=== PATIENT | male | born 1985 | race Caucasian/White ===

== ENCOUNTER 2016-06-04 10:53 | Emergency (ER) | payer OTHER ==
--- NOTE | 2016-06-04 12:23 | DIAGNOSTIC IMAGING REPORT ---
PROCEDURE: XR CHEST 2 VIEW INDICATION: CHEST PAIN TECHNIQUE: PA and lateral views. COMPARISON: None. FINDINGS: Lungs are clear. Heart and mediastinum are normal. Thorax is normal. IMPRESSION: 1. Negative chest.
--- NOTE | 2016-06-04 12:58 | ED NURSING NOTES ---
Clinical Report - Nurses [facility] [address] [place] [address] 06/04/2016 10:54 Patient: TAMERA AN TRIAGE Triage time 10:56. Acuity: LEVEL 3. Chief Complaint: CHEST PAIN. 10:59 06/04/16. 10:59 06/04/16. No acute distress. ( Pt states his chest pain started 1 hr ago, pt started a new med for shoulder pain.). --10:59 Dominik Landeros R.N. 10:56 06/04/16. BP: 120/79. HR: 92. RR: 18. O2 saturation: 100% on room air. Temp: 97.9 F (oral). Pain level now: 10. --10:59 Dominik Landeros R.N. Weight: 72.5 kg stated. Height/Length: 67 inches Per Patient. BMI: 25.1. --10:57 Dominik Landeros R.N. Medications Meloxicam Oral, started 06/03/2016. --11:01 Dominik Landeros R.N. The following entry was struck by Dominik Landeros R.N., 11:01 (06/04/16) Reason - other. <<STRICKEN ENTRY-- Muscle Relaxant. --10:58 Dominik Landeros R.N. --END STRIKE>>. Medication/allergy information source: the patient. --10:59 Dominik Landeros R.N. Allergies None. --10:58 Dominik Landeros R.N. History Arrived by private vehicle. Historian: patient. Accompanied by family. 10:59 06/04/16. Onset. (1 hr ago). Treatment VETERINARIAN EPIDEMIOLOGIST: None. PAST MEDICAL HX: Immunizations: up-to-date. SOCIAL HX: Never smoker. Occasional alcohol use. No drug use. No infectious disease exposure. ABUSE ASSESSMENT: No report of abuse. FALL RISK ASSESSMENT: Fall risk assessment completed. No fall risk identified. NUTRITIONAL RISK ASSESSMENT: The nutritional risk assessment revealed no deficiencies. FUNCTIONAL ASSESSMENT: Functional assessment: no impairments noted. LEARNING NEEDS ASSESSMENT: The learning needs assessment revealed no barriers. SKIN INTEGRITY ASSESSMENT: Skin integrity risk assessment completed. No skin integrity risk identified. --10:59 Dominik Landeros R.N. PROBLEMS: Shoulder pain. Arthritis. --10:59 Dominik Landeros R.N. Syncope. Myofascial Strain. Torn rotator cuff. --11:04 Dominik Landeros R.N. ADDITIONAL SURGERIES: Vasectomy. --10:59 Dominik Landeros R.N. Assessment 10:06/04/16. --10:59 Dominik Landeros R.N. Interventions 10:06/04/16. 10:06/04/16. ID and allergy band on patient. To treatment room. --10:59 Dominik Landeros R.N. PHYSICAL ASSESSMENT 10:06/04/16. GENERAL / NEURO / PSYCH: Oriented X 4. Appears anxious. RESPIRATORY: Respirations not labored. CVS: Capillary refill less than 2 seconds. SKIN: Skin is warm and dry. --10:59 Dominik Landeros R.N. NURSING PROGRESS NOTES 11:06/04/16. monitoring engineer, pulse oximeter and NIBP monitor placed on patient; monitor alarms on. Patient gowned. Head of bed elevated. Two patient identifiers checked. Call light placed in reach. Side rails up x 2. Bed placed in lowest position. Brakes of bed on. Brakes of chair on. --11:00 Dominik Landeros R.N. 11:06/04/16. Patient ready for evaluation- chart flagged and notification provided. --11:00 Dominik Landeros R.N. 11:03 06/04/16. EKG time: (1106). EKG was ordered, performed by a tech and shown to the ED physician. --11:03 Dominik Landeros R.N. 11:04 06/04/16. Cardiac rhythm: normal sinus rhythm; (87). --11:04 Dominik Landeros R.N. 11:46 06/04/2016 Site #1 started via IV in the left antecubital space with an 20g angiocath, with aseptic technique and good blood return; one attempt. Blood drawn: rainbow set. Labeled in the presence of the patient and sent to the lab. Saline lock flushed with 10 mL saline. --11:46 Dominik Landeros R.N. 11:53 06/04/16. ( X-ray completed). --11:53 Dominik Landerso R.N. Cardiac rhythm: normal sinus rhythm. --11:57 Dominik Landeros R.N. 11:56 06/04/16. BP: 115/81. HR: 90. RR: 12. O2 saturation: 100% on room air. --11:57 Dominik Landeros R.N. DISPOSITION / DISCHARGE 13:17 06/04/2016 Site #1 removed upon discharge. Catheter intact. --13:17 Dominik Landeros R.N. 13:18 06/04/16. Cardiac rhythm: normal sinus rhythm. Condition at departure: improved. The goals identified in the patient's plan of care were met. No learning barriers present. Discharge instructions provided and reviewed with the patient. Reviewed warnings. Reviewed medication(s). Treatments reviewed. Patient verbalized understanding. Written instructions provided in [place]. The patient was discharged by the physician. He was discharged home and accompanied by family. He left the Emergency Department ambulatory and via private vehicle. Family member driving. FALL RISK ASSESSMENT: Fall risk assessment completed. No fall risk identified. --13:18 Dominik Landeros R.N. 13:16 06/04/16. BP: 114/74. HR: 80. RR: 12. O2 saturation: 99% on room air. Temp: 98.2 F (oral). --13:18 Dominik Landeros R.N. 13:18 06/04/16. Departure time: 13:18. --13:18 Dominik Landeros R.N. Locked/Released at 06/04/2016 13:26 by Dominik Landeros R.N.
--- NOTE | 2016-06-04 12:58 | ED ORDER SUMMARY ---
..... Patient: TAMERA AN OrderSheet [facility] VisitID: [id number] [place] [address] 31y, M Registration Date/Time: 06/04/2016 ORDER SHEET Weight: 72.5 kg (stated) Allergies: None GENERAL ORDERS: Machining Manager (Continuous) (11:06/04/2016 JBoardley R.N. per protocol) (11:02 JBoardley R.N.) Pulse oximeter (11:06/04/2016 JBoardley R.N. per protocol) (11:02 JBoardley R.N.) EKG - ER Stat (11:06/04/2016 JBoardley R.N. per protocol) (11:03 JBoardley R.N.) Chest 2V Urgent (11:36 06/04/2016 Wilman Pham) (11:46 JBoardley R.N.) Cardiac Panel Stat (11:06/04/2016 Wilman Pham) (11:46 JBoardley R.N.) BNP Urgent (11:36 06/04/2016 Wilman Pham) (11:46 JBoardley R.N.) D-Dimer Urgent (11:36 06/04/2016 Wilman Pham) (11:46 JBoardley R.N.) MEDICATION ORDERS: IV FLUIDS: IV Saline Lock (11:36 06/04/2016 Wilman Pham) (Ack 11:38 JBoardley R.N.) (11:46 JBoardley R.N.) ORDER SHEET NOTES: [Electronically signed by Dominik Landeros R.N. (13:26 06/04/2016)] [Electronically signed by Yony Nix Dr. (20:41 06/05/2016)] [Electronically locked/signed by Dominik Landeros R.N. (13:06/04/2016)]
--- NOTE | 2016-06-04 12:58 | ED CLINICAL REPORT ---
Clinical Report - Physicians/Mid Levels [facility] [address] [place] [address] 06/04/2016 10:54 Patient: TAMERA AN Time Seen: 11:00; initial patient contact. Arrived- By private vehicle. Historian- patient. HISTORY OF PRESENT ILLNESS Chief Complaint: CHEST PAIN. This started today and is still present. Onset during light activity. At its maximum, severity described as mild. When seen in the E.D., severity described as mild. Modifying factors. Not worsened by anything. Not relieved by anything. It is described as indigestion and burning and it is described as radiating to the upper back. The patient has had nausea and has experienced diaphoresis. No vomiting or difficulty breathing. Similar symptoms previously: None. Recent medical care: The patient was seen recently in the office. ( Started on Meloxicam yesterday). REVIEW OF SYSTEMS No fever, chills, cough, pedal edema or calf pain. He has had joint pain. All systems otherwise negative, except as recorded above. PAST HISTORY Shoulder pain. Arthritis. Syncope. Myofascial Strain. Torn rotator cuff. SURGERIES: Vasectomy. Medications: Meloxicam Oral, started 06/03/2016. Allergies: None. SOCIAL HISTORY Never smoker. Occasional alcohol use. No drug use. ADDITIONAL NOTES The nursing notes have been reviewed with agreement regarding the chief complaint, PMH and patient medications and allergies. PHYSICAL EXAM Vital Signs: 06/04/2016 10:56 BP: 120/79. HR: 92. RR: 18. O2 saturation: 100%. Temp: 97.9 F. Pain level now: 07/18. Have been reviewed as normal. Appearance: Alert. Oriented X3. No acute distress. Eyes: Eyes normal inspection. ENT: Pharynx normal. Neck: Normal inspection. CVS: Normal heart rate and rhythm. Heart sounds normal. Respiratory: No respiratory distress. Breath sounds normal. Abdomen: Soft. Mild tenderness in the epigastric area. No guarding, rebound tenderness or Sheridan's sign present. Bowel sounds normal. No mass. Back: Normal external inspection. No CVA tenderness. Skin: Normal skin color. No rash. Extremities: No calf tenderness. No lower extremity edema. Neuro: Oriented X 3. LABS, X-RAYS, AND EKG EKG: EKG time: (1106). No acute process. No acute ischemia. Normal EKG. Normal sinus rhythm. Rate: 82. Normal P waves. Normal EVIE. Normal QRS complex. Normal axis. Normal ST and T waves, QT and QTc. Prior EKG unavailable. The study has been interpreted contemporaneously by me. The study has been independently viewed by me. The EKG appears to be a good tracing. I agree with and confirm the computer reading of the EKG. Interpretation time: 1106. Chest X-ray: No acute disease. Normal lung markings present. Normal heart size. Mediastinum normal. Great vessels normal. Soft tissues normal. No infiltrate. No fracture. No bony lesion present. Views: PA and lateral. Technique: good. The X-rays were independently viewed by me and interpreted contemporaneously by me. Prior films were not available for comparison. Interpretation time: 12:00. Laboratory Tests: CBC w Diff: (SHU: 06/04/2016 11:45) ( MsgRcvd 06/04/2016 12:01) Final results Test Result Flag Units (Reference) WHITE BLOOD COUNT 7.0 K/uL (4.5-11.5) RED BLOOD COUNT 5.17 M/uL (4.50-5.90) HEMOGLOBIN 15.4 gm/dL (13.5-17.5) HEMATOCRIT 46.4 % (41.0-53.0) MEAN CELL VOLUME 90 fL (80-100) MEAN CORPUSCULAR HGB 30 pg (26-34) MEAN CORPUSCULAR HGB CONC 33 g/dL (31-37) RED CELL DISTRIBUTION WIDTH 13.3 % (11.6-14.8) PLATELET COUNT 176 K/uL (150-400) NEUTROPHIL % 87.6 H % (50-75) LYMPH % 6.1 L % (25-40) MONO % 4.6 % (3-14) EOSINOPHIL % 1.7 % (0-4) BASOPHIL % 0 % (0-2) [id number]: (SHU: 06/04/2016 11:45) ( MsgRcvd 06/04/2016 12:03) Final results Test Result Flag Units (Reference) D-DIMER QUANTITATIVE < 0.27 L ug/mLFEU (0.27-0.52) The primary value of this quantitative assay relates toits negative predictive value (i.e. exclusion) of pulmonaryembolism/deep vein thrombosis/DIC.Elevated levels of d-dimer may also occur with:, age, cancer, inflammation, liver disease,post-op, infection, hematoma, coronary disease, peripheralarteriopathy, bleeding disorders and thrombolytic treatment.Results should be correlated with other clinical andradiological data.Testing Methodology: Latex Immunoassay BNP: (SHU: 06/04/2016 11:45) ( [facility] 06/04/2016 12:28) Final results Test Result Flag Units (Reference) B-TYPE NATRIURETIC PEPTIDE 8.5 pg/ml (5-100) CHEM 13 PANEL: (SHU: 06/04/2016 11:45) ( AzgRcvd 06/04/2016 12:13) Final results Test Result Flag Units (Reference) GLUCOSE 86 mg/dL (70-110) BUN 19 H mg/dL (7-18) CREATININE 0.9 mg/dL (0.6-1.3) Estimated GFR >60 mL/min Estimated GFR- >60 mL/min Note: Persistent reduction over 3 months in eGFR<60 mL/min/1.73 m2 defines CKD. Patients with eGFR values>=60 mL/min/1.73 m2 may also have CKD if evidence ofpersistent proteinuria. Additional information may be foundat www.kidney.org. SODIUM 142 mmol/L (136-145) POTASSIUM 4.1 mmol/L (3.5-5.1) CHLORIDE 106 mmol/L (98-107) CARBON DIOXIDE 27 mmol/L (21-32) CALCIUM 8.7 mg/dL (8.5-10.1) TOTAL PROTEIN 7.3 g/dL (6.4-8.2) ALBUMIN 4.1 g/dL (3.3-5.0) BILIRUBIN, TOTAL 0.8 mg/dL (0.0-1.0) ALKALINE PHOSPHATASE 53 U/L (46-116) AST (SGOT) 18 U/L (15-37) ALT (SGPT) 26 U/L (12-78) MAGNESIUM 1.6 L mg/dL (1.8-2.4) CPK 85 U/L (24-260) TROPONIN I <0.05 L ng/mL (0.00-1.5) TROPONIN REFERENCE RANGE:<0.1 NEGATIVE0.1-1.5 INDETERMINANT>1.5 POSITIVE . PROGRESS AND PROCEDURES Disposition: Discharged home in good condition. Condition: good. CLINICAL IMPRESSION Acute gastritis. No alcoholic gastritis or hemorrhagic gastritis. INSTRUCTIONS Your Current Medications: STOP TAKING THE FOLLOWING MEDICATIONS: Meloxicam Oral : Started: 06/03/2016. Prescription Medications: Tramadol 50 mg: take 1 orally every 6 hours as needed for pain and stiffness. Do not take more than 8 tablets in a 24 hour period. Dispense twenty (20). No refills. Zantac 150 mg: take 1 orally every 12 hours. Dispense sixty (60). No refills. Substitution is permissible. Follow-up: Follow up with your doctor in about two days if not better. Call for an appointment. Screening today revealed the patient's blood pressure to be in the pre-hypertensive range. The patient should follow up with a primary care provider for blood pressure management. (Electronically signed by Yony Nix Dr. 06/05/2016 20:41)
--- NOTE | 2016-06-04 12:58 | ED NURSING NOTES ---
Clinical Report - Nurses [facility] [address] [place] [address] 06/04/2016 10:54 Patient: TAMERA AN TRIAGE Triage time 10:56. Acuity: LEVEL 3. Chief Complaint: CHEST PAIN. 10:59 06/04/16. 10:59 06/04/16. No acute distress. ( Pt states his chest pain started 1 hr ago, pt started a new med for shoulder pain.). --10:59 Dominik Landeros R.N. 10:56 06/04/16. BP: 120/79. HR: 92. RR: 18. O2 saturation: 100% on room air. Temp: 97.9 F (oral). Pain level now: 10. --10:59 Dominik Landeros R.N. Weight: 72.5 kg stated. Height/Length: 67 inches Per Patient. BMI: 25.1. --10:57 Dominik Landeros R.N. Medications Meloxicam Oral, started 06/03/2016. --11:01 Dominik Landeros R.N. The following entry was struck by Dominik Landeros R.N., 11:01 (06/04/16) Reason - other. <<STRICKEN ENTRY-- Muscle Relaxant. --10:58 Dominik Landeros R.N. --END STRIKE>>. Medication/allergy information source: the patient. --10:59 Dominik Landeros R.N. Allergies None. --10:58 Dominik Landeros R.N. History Arrived by private vehicle. Historian: patient. Accompanied by family. 10:59 06/04/16. Onset. (1 hr ago). Treatment PATIENT CASE MANAGER: None. PAST MEDICAL HX: Immunizations: up-to-date. SOCIAL HX: Never smoker. Occasional alcohol use. No drug use. No infectious disease exposure. ABUSE ASSESSMENT: No report of abuse. FALL RISK ASSESSMENT: Fall risk assessment completed. No fall risk identified. NUTRITIONAL RISK ASSESSMENT: The nutritional risk assessment revealed no deficiencies. FUNCTIONAL ASSESSMENT: Functional assessment: no impairments noted. LEARNING NEEDS ASSESSMENT: The learning needs assessment revealed no barriers. SKIN INTEGRITY ASSESSMENT: Skin integrity risk assessment completed. No skin integrity risk identified. --10:59 Dominik Landeros R.N. PROBLEMS: Shoulder pain. Arthritis. --10:59 Dominik Landeros R.N. Syncope. Myofascial Strain. Torn rotator cuff. --11:04 Dominik Landeros R.N. ADDITIONAL SURGERIES: Vasectomy. --10:59 Dominik Landeros R.N. Assessment 10:06/04/16. --10:59 Dominik Landeros R.N. Interventions 10:06/04/16. 10:06/04/16. ID and allergy band on patient. To treatment room. --10:59 Dominik Landeros R.N. PHYSICAL ASSESSMENT 10:06/04/16. GENERAL / NEURO / PSYCH: Oriented X 4. Appears anxious. RESPIRATORY: Respirations not labored. CVS: Capillary refill less than 2 seconds. SKIN: Skin is warm and dry. --10:59 Dominik Landeros R.N. NURSING PROGRESS NOTES 11:06/04/16. quality assurance monitor, pulse oximeter and NIBP monitor placed on patient; monitor alarms on. Patient gowned. Head of bed elevated. Two patient identifiers checked. Call light placed in reach. Side rails up x 2. Bed placed in lowest position. Brakes of bed on. Brakes of chair on. --11:00 Dominik Landeros R.N. 11:06/04/16. Patient ready for evaluation- chart flagged and notification provided. --11:00 Dominik Landeros R.N. 11:03 06/04/16. EKG time: (1106). EKG was ordered, performed by a tech and shown to the ED physician. --11:03 Dominik Landeros R.N. 11:04 06/04/16. Cardiac rhythm: normal sinus rhythm; (87). --11:04 Dominik Landeros R.N. 11:46 06/04/2016 Site #1 started via IV in the left antecubital space with an 20g angiocath, with aseptic technique and good blood return; one attempt. Blood drawn: rainbow set. Labeled in the presence of the patient and sent to the lab. Saline lock flushed with 10 mL saline. --11:46 Dominik Landeros R.N. 11:53 06/04/16. ( X-ray completed). --11:53 Dominik Landeros R.N. Cardiac rhythm: normal sinus rhythm. --11:57 Dominik Landeros R.N. 11:56 06/04/16. BP: 115/81. HR: 90. RR: 12. O2 saturation: 100% on room air. --11:57 Dominik Landeros R.N. DISPOSITION / DISCHARGE 13:17 06/04/2016 Site #1 removed upon discharge. Catheter intact. --13:17 Dominik Landeros R.N. 13:18 06/04/16. Cardiac rhythm: normal sinus rhythm. Condition at departure: improved. The goals identified in the patient's plan of care were met. No learning barriers present. Discharge instructions provided and reviewed with the patient. Reviewed warnings. Reviewed medication(s). Treatments reviewed. Patient verbalized understanding. Written instructions provided in [place]. The patient was discharged by the physician. He was discharged home and accompanied by family. He left the Emergency Department ambulatory and via private vehicle. Family member driving. FALL RISK ASSESSMENT: Fall risk assessment completed. No fall risk identified. --13:18 Dominik Landeros R.N. 13:16 06/04/16. BP: 114/74. HR: 80. RR: 12. O2 saturation: 99% on room air. Temp: 98.2 F (oral). --13:18 Dominik Landeros R.N. 13:18 06/04/16. Departure time: 13:18. --13:18 Dominik Landeros R.N. Locked/Released at 06/04/2016 13:26 by Dominik Landeros R.N.
--- NOTE | 2016-06-04 12:58 | ED ORDER SUMMARY ---
..... Patient: TAMERA AN OrderSheet [facility] VisitID: [id number] [place] [address] 31y, M Registration Date/Time: 06/04/2016 ORDER SHEET Weight: 72.5 kg (stated) Allergies: None GENERAL ORDERS: Manager Grocery (Continuous) (11:06/04/2016 JBoardley R.N. per protocol) (11:02 JBoardley R.N.) Pulse oximeter (11:06/04/2016 JBoardley R.N. per protocol) (11:02 JBoardley R.N.) EKG - ER Stat (11:06/04/2016 JBoardley R.N. per protocol) (11:03 JBoardley R.N.) Chest 2V Urgent (11:36 06/04/2016 Wilman Pham) (11:46 JBoardley R.N.) Cardiac Panel Stat (11:06/04/2016 Wilman Pham) (11:46 JBoardley R.N.) BNP Urgent (11:36 06/04/2016 Wilman Pham) (11:46 JBoardley R.N.) D-Dimer Urgent (11:36 06/04/2016 Wilman Pham) (11:46 JBoardley R.N.) MEDICATION ORDERS: IV FLUIDS: IV Saline Lock (11:36 06/04/2016 Wilman Pham) (Ack 11:38 JBoardley R.N.) (11:46 JBoardley R.N.) ORDER SHEET NOTES: [Electronically signed by Dominik Landeros R.N. (13:26 06/04/2016)] [Electronically signed by Yony Nix Dr. (20:41 06/05/2016)] [Electronically locked/signed by Dominik Landeros R.N. (13:06/04/2016)]
--- NOTE | 2016-06-04 12:58 | ED CLINICAL REPORT ---
Clinical Report - Physicians/Mid Levels [facility] [address] [place] [address] 06/04/2016 10:54 Patient: TAMERA AN Time Seen: 11:00; initial patient contact. Arrived- By private vehicle. Historian- patient. HISTORY OF PRESENT ILLNESS Chief Complaint: CHEST PAIN. This started today and is still present. Onset during light activity. At its maximum, severity described as mild. When seen in the E.D., severity described as mild. Modifying factors. Not worsened by anything. Not relieved by anything. It is described as indigestion and burning and it is described as radiating to the upper back. The patient has had nausea and has experienced diaphoresis. No vomiting or difficulty breathing. Similar symptoms previously: None. Recent medical care: The patient was seen recently in the office. ( Started on Meloxicam yesterday). REVIEW OF SYSTEMS No fever, chills, cough, pedal edema or calf pain. He has had joint pain. All systems otherwise negative, except as recorded above. PAST HISTORY Shoulder pain. Arthritis. Syncope. Myofascial Strain. Torn rotator cuff. SURGERIES: Vasectomy. Medications: Meloxicam Oral, started 06/03/2016. Allergies: None. SOCIAL HISTORY Never smoker. Occasional alcohol use. No drug use. ADDITIONAL NOTES The nursing notes have been reviewed with agreement regarding the chief complaint, PMH and patient medications and allergies. PHYSICAL EXAM Vital Signs: 06/04/2016 10:56 BP: 120/79. HR: 92. RR: 18. O2 saturation: 100%. Temp: 97.9 F. Pain level now: 07/18. Have been reviewed as normal. Appearance: Alert. Oriented X3. No acute distress. Eyes: Eyes normal inspection. ENT: Pharynx normal. Neck: Normal inspection. CVS: Normal heart rate and rhythm. Heart sounds normal. Respiratory: No respiratory distress. Breath sounds normal. Abdomen: Soft. Mild tenderness in the epigastric area. No guarding, rebound tenderness or Sheridan's sign present. Bowel sounds normal. No mass. Back: Normal external inspection. No CVA tenderness. Skin: Normal skin color. No rash. Extremities: No calf tenderness. No lower extremity edema. Neuro: Oriented X 3. LABS, X-RAYS, AND EKG EKG: EKG time: (1106). No acute process. No acute ischemia. Normal EKG. Normal sinus rhythm. Rate: 82. Normal P waves. Normal EVIE. Normal QRS complex. Normal axis. Normal ST and T waves, QT and QTc. Prior EKG unavailable. The study has been interpreted contemporaneously by me. The study has been independently viewed by me. The EKG appears to be a good tracing. I agree with and confirm the computer reading of the EKG. Interpretation time: 1106. Chest X-ray: No acute disease. Normal lung markings present. Normal heart size. Mediastinum normal. Great vessels normal. Soft tissues normal. No infiltrate. No fracture. No bony lesion present. Views: PA and lateral. Technique: good. The X-rays were independently viewed by me and interpreted contemporaneously by me. Prior films were not available for comparison. Interpretation time: 12:00. Laboratory Tests: CBC w Diff: (SHU: 06/04/2016 11:45) ( MsgRcvd 06/04/2016 12:01) Final results Test Result Flag Units (Reference) WHITE BLOOD COUNT 7.0 K/uL (4.5-11.5) RED BLOOD COUNT 5.17 M/uL (4.50-5.90) HEMOGLOBIN 15.4 gm/dL (13.5-17.5) HEMATOCRIT 46.4 % (41.0-53.0) MEAN CELL VOLUME 90 fL (80-100) MEAN CORPUSCULAR HGB 30 pg (26-34) MEAN CORPUSCULAR HGB CONC 33 g/dL (31-37) RED CELL DISTRIBUTION WIDTH 13.3 % (11.6-14.8) PLATELET COUNT 176 K/uL (150-400) NEUTROPHIL % 87.6 H % (50-75) LYMPH % 6.1 L % (25-40) MONO % 4.6 % (3-14) EOSINOPHIL % 1.7 % (0-4) BASOPHIL % 0 % (0-2) [id number]: (SHU: 06/04/2016 11:45) ( MsgRcvd 06/04/2016 12:03) Final results Test Result Flag Units (Reference) D-DIMER QUANTITATIVE < 0.27 L ug/mLFEU (0.27-0.52) The primary value of this quantitative assay relates toits negative predictive value (i.e. exclusion) of pulmonaryembolism/deep vein thrombosis/DIC.Elevated levels of d-dimer may also occur with:, age, cancer, inflammation, liver disease,post-op, infection, hematoma, coronary disease, peripheralarteriopathy, bleeding disorders and thrombolytic treatment.Results should be correlated with other clinical andradiological data.Testing Methodology: Latex Immunoassay BNP: (SHU: 06/04/2016 11:45) ( [facility] 12[facility]28) Final results Test Result Flag Units (Reference) B-TYPE NATRIURETIC PEPTIDE 8.5 pg/ml (5-100) CHEM 13 PANEL: (SHU: 06/04/2016 11:45) ( MdgRcvd 06/04/2016 12:13) Final results Test Result Flag Units (Reference) GLUCOSE 86 mg/dL (70-110) BUN 19 H mg/dL (7-18) CREATININE 0.9 mg/dL (0.6-1.3) Estimated GFR >60 mL/min Estimated GFR- >60 mL/min Note: Persistent reduction over 3 months in eGFR<60 mL/min/1.73 m2 defines CKD. Patients with eGFR values>=60 mL/min/1.73 m2 may also have CKD if evidence ofpersistent proteinuria. Additional information may be foundat www.[email or web address].org. SODIUM 142 mmol/L (136-145) POTASSIUM 4.1 mmol/L (3.5-5.1) CHLORIDE 106 mmol/L (98-107) CARBON DIOXIDE 27 mmol/L (21-32) CALCIUM 8.7 mg/dL (8.5-10.1) TOTAL PROTEIN 7.3 g/dL (6.4-8.2) ALBUMIN 4.1 g/dL (3.3-5.0) BILIRUBIN, TOTAL 0.8 mg/dL (0.0-1.0) ALKALINE PHOSPHATASE 53 U/L (46-116) AST (SGOT) 18 U/L (15-37) ALT (SGPT) 26 U/L (12-78) MAGNESIUM 1.6 L mg/dL (1.8-2.4) CPK 85 U/L (24-260) TROPONIN I <0.05 L ng/mL (0.00-1.5) TROPONIN REFERENCE RANGE:<0.1 NEGATIVE0.1-1.5 INDETERMINANT>1.5 POSITIVE . PROGRESS AND PROCEDURES Disposition: Discharged home in good condition. Condition: good. CLINICAL IMPRESSION Acute gastritis. No alcoholic gastritis or hemorrhagic gastritis. INSTRUCTIONS Your Current Medications: STOP TAKING THE FOLLOWING MEDICATIONS: Meloxicam Oral : Started: 06/03/2016. Prescription Medications: Tramadol 50 mg: take 1 orally every 6 hours as needed for pain and stiffness. Do not take more than 8 tablets in a 24 hour period. Dispense twenty (20). No refills. Zantac 150 mg: take 1 orally every 12 hours. Dispense sixty (60). No refills. Substitution is permissible. Follow-up: Follow up with your doctor in about two days if not better. Call for an appointment. Screening today revealed the patient's blood pressure to be in the pre-hypertensive range. The patient should follow up with a primary care provider for blood pressure management. (Electronically signed by Yony Nix Dr. 06/05/2016 20:41)
--- NOTE | 2016-06-05 20:41 | ED DISCHARGE INSTRUCTIONS ---
Patient: TAMERA AN General Instructions [facility] VisitID: [id number] [place] [address] 31y, M Registration Date/Time: 06/04/2016 Acute gastritis. No alcoholic gastritis or hemorrhagic gastritis. INSTRUCTIONS Your Current Medications: STOP TAKING THE FOLLOWING MEDICATIONS: Meloxicam Oral : Started: 06/03/2016. Prescription Medications: Tramadol 50 mg: take 1 orally every 6 hours as needed for pain and stiffness. Do not take more than 8 tablets in a 24 hour period. Dispense twenty (20). No refills. Zantac 150 mg: take 1 orally every 12 hours. Dispense sixty (60). No refills. Substitution is permissible. Follow-up: Follow up with your doctor in about two days if not better. Call for an appointment. Screening today revealed the patient's blood pressure to be in the pre-hypertensive range. The patient should follow up with a primary care provider for blood pressure management. ADDITIONAL INFORMATION Gastritis (Adult) Gastritis is an irritation of the stomach lining. It can be acute (recent) or chronic (lasting a long time). Gastritis can be caused by overuse of alcohol or anti-inflammatory medications (such as aspirin, ibuprofen, or prednisone). H pyloriinfection can also cause chronic gastritis. Gastritis can cause a dull ache or burning pain in the upper abdomen. Other symptoms include nausea, vomiting, loss of appetite, and belching or bloating. Blood in the vomit or stools (red or black) is a sign of bleeding in the stomach. This requires immediate medical attention. Tests for H pyloriare used to screen for bacterial infection. If no infection is found, gastritis can be treated by stopping the cause and treating with antacids plus an acid jose medication. If H pylori infection is found, antibiotics will also be prescribed. Persons 55 years and older may undergo other tests before treatment is started. Two common tests are used to evaluate your symptoms. An upper GI series is an x-ray taken after you drink a chalky liquid called barium. This coats the stomach and allows the doctor to view any problems in the stomach on the x-ray. Another test is called endoscopy, during which a long thin tube called an endoscope is passed down your throat to the stomach. A camera at the end of the scope allows the doctor to view inside the stomach to check the cause of your symptoms. Home Care: Take the prescribed acid jose medication for the full course of treatment even if you begin to feel better sooner. This medication can take up to several days to fully control your symptoms. If you cant afford the prescribed medication, you can try [id number]-ldw-frcyxqf acid blockers, such as Pepcid AC, Tagamet, Zantac, or Aciphex. If these do not relieve your symptoms, a stronger acid-jose can be tried, such as Prilosec OTC. If you have been prescribed an antibiotic to treat H pyloriinfection, finish the full course of medication. Do so even if you begin to feel better sooner. If you stop the medication too soon, the infection can return and be harder to treat. You can use antacids, such as Tums, Rolaids, Mylanta, or Maalox, for pain. This will be useful the first few days after starting acid blockers when the blockers havent started working yet. Follow the directions on the label. Liquid antacids may work better than tablets. Note that antacids can interfere with absorption of certain medications. Specifically, do not take Tagamet (cimetidine), Zantac (ranitidine), or Carafate (sucralfate) within 1 hour of taking an antacid. Talk with your pharmacist if you have any questions. Symptoms of gastritis can be worsened by certain foods. Limit or avoid fatty, fried, and spicy foods, as well as coffee, chocolate, mint, and foods with high acid content such as tomatoes and citrus fruit and juices (orange, grapefruit, lemon). Avoid alcohol, caffeine, and tobacco, which can delay healing. Avoid aspirin and anti-inflammatory medications such as ibuprofen (Advil, Motrin) and naproxen (Naprosyn, Aleve). Acetaminophen (Tylenol) is safe to use. Do not take more than the amount listed on the label. Follow Up with your doctor, or as advised by our staff. Further testing may be needed. If you do not improve over the next 4 days, contact your doctor. If you had an x-ray, CT scan, or ECG (electrocardiogram), it will be reviewed by a specialist. Youll be notified of any new findings that affect your care. Get Prompt Medical Attention if any of the following occur: Stomach pain gets worse or moves to the lower right abdomen (appendix area) Chest pain appears or gets worse, or spreads to the back, neck, shoulder, or arm Frequent vomiting (cant keep down liquids) Blood in the stool or vomit (red or black in color) Feeling weak or dizzy, fainting, or trouble breathing Fever of 100.4F (38C) or higher, or as directed by your healthcare provider Tramadol Hydrochloride Oral tablet What is this medicine? TRAMADOL (TRA ma dole) is a pain reliever. It is used to treat moderate to severe pain in adults. How should I use this medicine? Take this medicine by mouth with a full glass of water. Follow the directions on the prescription label. If the medicine upsets your stomach, take it with food or milk. Do not take more medicine than you are told to take. Talk to your clerical coordinator regarding the use of this medicine in children. Special care may be needed. What side effects may I notice from receiving this medicine? Side effects that you should report to your doctor or health body care manager as soon as possible: allergic reactions like skin rash, itching or hives, swelling of the face, lips, or tongue breathing difficulties, wheezing confusion itching light headedness or fainting spells redness, blistering, peeling or loosening of the skin, including inside the mouth seizures Side effects that usually do not require medical attention (report to your doctor or health body care manager if they continue or are bothersome): constipation dizziness drowsiness headache nausea, vomiting What may interact with this medicine? Do not take this medicine with any of the following medications: MAOIs like Carbex, Eldepryl, Marplan, Nardil, and Parnate This medicine may also interact with the following medications: alcohol or medicines that contain alcohol antihistamines benzodiazepines bupropion carbamazepine or oxcarbazepine clozapine cyclobenzaprine digoxin furazolidone linezolid medicines for depression, anxiety, or psychotic disturbances medicines for migraine headache like almotriptan, eletriptan, frovatriptan, naratriptan, rizatriptan, sumatriptan, zolmitriptan medicines for pain like pentazocine, buprenorphine, butorphanol, meperidine, nalbuphine, and propoxyphene medicines for sleep muscle relaxants naltrexone phenobarbital phenothiazines like perphenazine, thioridazine, chlorpromazine, mesoridazine, fluphenazine, prochlorperazine, promazine, and trifluoperazine procarbazine warfarin What if I miss a dose? If you miss a dose, take it as soon as you can. If it is almost time for your next dose, take only that dose. Do not take double or extra doses. Where should I keep my medicine? Keep out of the reach of children. Store at room temperature between 15 and 30 degrees C (59 and 86 degrees F). Keep container tightly closed. Throw away any unused medicine after the expiration date. What should I tell my health care provider before I take this medicine? They need to know if you have any of these conditions: brain tumor depression drug abuse or addiction head injury if you frequently drink alcohol containing drinks kidney disease or trouble passing urine liver disease lung disease, asthma, or breathing problems seizures or epilepsy suicidal thoughts, plans, or attempt; a previous suicide attempt by you or a family member an unusual or allergic reaction to tramadol, codeine, other medicines, foods, dyes, or preservatives or trying to get breast-feeding What should I watch for while using this medicine? Tell your doctor or health body care manager if your pain does not go away, if it gets worse, or if you have new or a different type of pain. You may develop tolerance to the medicine. Tolerance means that you will need a higher dose of the medicine for pain relief. Tolerance is normal and is expected if you take this medicine for a long time. Do not suddenly stop taking your medicine because you may develop a severe reaction. Your body becomes used to the medicine. This does NOT mean you are addicted. Addiction is a behavior related to getting and using a drug for a non-medical reason. If you have pain, you have a medical reason to take pain medicine. Your doctor will tell you how much medicine to take. If your doctor wants you to stop the medicine, the dose will be slowly lowered over time to avoid any side effects. You may get drowsy or dizzy. Do not drive, use machinery, or do anything that needs mental alertness until you know how this medicine affects you. Do not stand or sit up quickly, especially if you are an older patient. This reduces the risk of dizzy or fainting spells. Alcohol can increase or decrease the effects of this medicine. Avoid alcoholic drinks. You may have constipation. Try to have a bowel movement at least every 2 to 3 days. If you do not have a bowel movement for 3 days, call your doctor or health body care manager. Your mouth may get dry. Chewing sugarless gum or sucking hard candy, and drinking plenty of water may help. Contact your doctor if the problem does not go away or is severe. Ranitidine Hydrochloride Oral tablet What is this medicine? RANITIDINE (ra IMANI simental) is a type of antihistamine that blocks the release of stomach acid. It is used to treat stomach or intestinal ulcers. It can relieve ulcer pain and discomfort, and the heartburn from acid reflux. How should I use this medicine? Take this medicine by mouth with a glass of water. Follow the directions on the prescription label. If you only take this medicine once a day, take it at bedtime. Take your medicine at regular intervals. Do not take your medicine more often than directed. Do not stop taking except on your doctor's advice. Talk to your clerical coordinator regarding the use of this medicine in children. Special care may be needed. What side effects may I notice from receiving this medicine? Side effects that you should report to your doctor or health body care manager as soon as possible: agitation, nervousness, depression, hallucinations allergic reactions like skin rash, itching or hives, swelling of the face, lips, or tongue breast enlargement in both males and females breathing problems redness, blistering, peeling or loosening of the skin, including inside the mouth unusual bleeding or bruising unusually weak or tired vomiting yellowing of the skin or eyes Side effects that usually do not require medical attention (report to your doctor or health body care manager if they continue or are bothersome): constipation or diarrhea dizziness headache nausea What may interact with this medicine? atazanavir delavirdine gefitinib glipizide ketoconazole midazolam procainamide propantheline triazolam warfarin What if I miss a dose? If you miss a dose, take it as soon as you can. If it is almost time for your next dose, take only that dose. Do not take double or extra doses. Where should I keep my medicine? Keep out of the reach of children. Store at room temperature between 15 and 30 degrees C (59 and 86 degrees F). Protect from light and moisture. Keep container tightly closed. Throw away any unused medicine after the expiration date. What should I tell my health care provider before I take this medicine? They need to know if you have any of these conditions: kidney disease liver disease porphyria an unusual or allergic reaction to ranitidine, other medicines, foods, dyes, or preservatives or trying to get breast-feeding What should I watch for while using this medicine? Tell your doctor or health body care manager if your condition does not start to get better or gets worse. You may need to take this medicine for several days as prescribed before your symptoms get better. Finish the full course of tablets prescribed, even if you feel better. Do not smoke cigarettes or drink alcohol. These increase irritation in your stomach and can lengthen the time it will take for ulcers to heal. Cigarettes and alcohol can also make acid reflux or heartburn worse. If you get black, tarry stools or vomit up what looks like coffee grounds, call your doctor or health body care manager at once. You may have a bleeding ulcer. You have been given the following additional information: Gastritis (Adult) Tramadol Hydrochloride Oral tablet Ranitidine Hydrochloride Oral tablet (Electronically signed by Yony Nix Dr. 06/05/2016 20:41)
--- NOTE | 2016-06-05 20:41 | ED MED RECONCILIATION SUMMARY ---
Patient: TAMERA AN Medication Reconciliation Report [facility] VisitID: [id number] [address] [place] [address] 31y, M Registration Date/Time: 06/04/2016 Weight: 72.5 kg Height/Length: 67 in. BMI: 25.1 ALLERGIES: None The patient's Home Medications are listed below: STOP TAKING THE FOLLOWING MEDICATIONS: Meloxicam Oral The source(s) of the original Home Medication information: patient The following Medications were given to the patient in the Emergency Department: None. The following Medications were prescribed to the patient: Tramadol 50 mg: take 1 orally every 6 hours as needed for pain and stiffness. Do not take more than 8 tablets in a 24 hour period. Dispense twenty (20). No refills. -- Yony Nix Dr. Zantac 150 mg: take 1 orally every 12 hours. Dispense sixty (60). No refills. Substitution is permissible. -- Yony Nix Dr.
--- NOTE | 2016-06-05 20:41 | ED MAR SUMMARY ---
..... Medication Administration Record Merged With [facility] [address] [place], [place] [id number] Patient: TAMERA AN Visit ID: [id number] 31y, M Weight: 72.5 kg Height/Length: 67 in BMI: 25.1 ALLERGIES: None
--- NOTE | 2016-06-05 20:41 | ED MAR SUMMARY ---
..... Medication Administration Record [facility] [address] [place], [place] [id number] Patient: TAMERA AN Visit ID: [id number] 31y, M Weight: 72.5 kg Height/Length: 67 in BMI: 25.1 ALLERGIES: None
--- NOTE | 2016-06-05 20:41 | ED DISCHARGE INSTRUCTIONS ---
Patient: TAMERA AN General Instructions [facility] VisitID: [id number] [place] [address] 31y, M Registration Date/Time: 06/04/2016 Acute gastritis. No alcoholic gastritis or hemorrhagic gastritis. INSTRUCTIONS Your Current Medications: STOP TAKING THE FOLLOWING MEDICATIONS: Meloxicam Oral : Started: 06/03/2016. Prescription Medications: Tramadol 50 mg: take 1 orally every 6 hours as needed for pain and stiffness. Do not take more than 8 tablets in a 24 hour period. Dispense twenty (20). No refills. Zantac 150 mg: take 1 orally every 12 hours. Dispense sixty (60). No refills. Substitution is permissible. Follow-up: Follow up with your doctor in about two days if not better. Call for an appointment. Screening today revealed the patient's blood pressure to be in the pre-hypertensive range. The patient should follow up with a primary care provider for blood pressure management. ADDITIONAL INFORMATION Gastritis (Adult) Gastritis is an irritation of the stomach lining. It can be acute (recent) or chronic (lasting a long time). Gastritis can be caused by overuse of alcohol or anti-inflammatory medications (such as aspirin, ibuprofen, or prednisone). H pyloriinfection can also cause chronic gastritis. Gastritis can cause a dull ache or burning pain in the upper abdomen. Other symptoms include nausea, vomiting, loss of appetite, and belching or bloating. Blood in the vomit or stools (red or black) is a sign of bleeding in the stomach. This requires immediate medical attention. Tests for H pyloriare used to screen for bacterial infection. If no infection is found, gastritis can be treated by stopping the cause and treating with antacids plus an acid jose medication. If H pylori infection is found, antibiotics will also be prescribed. Persons 55 years and older may undergo other tests before treatment is started. Two common tests are used to evaluate your symptoms. An upper GI series is an x-ray taken after you drink a chalky liquid called barium. This coats the stomach and allows the doctor to view any problems in the stomach on the x-ray. Another test is called endoscopy, during which a long thin tube called an endoscope is passed down your throat to the stomach. A camera at the end of the scope allows the doctor to view inside the stomach to check the cause of your symptoms. Home Care: Take the prescribed acid jose medication for the full course of treatment even if you begin to feel better sooner. This medication can take up to several days to fully control your symptoms. If you cant afford the prescribed medication, you can try vcnv-zfo-uqttbqj acid blockers, such as Pepcid AC, Tagamet, Zantac, or Aciphex. If these do not relieve your symptoms, a stronger acid-jose can be tried, such as Prilosec OTC. If you have been prescribed an antibiotic to treat H pyloriinfection, finish the full course of medication. Do so even if you begin to feel better sooner. If you stop the medication too soon, the infection can return and be harder to treat. You can use antacids, such as Tums, Rolaids, Mylanta, or Maalox, for pain. This will be useful the first few days after starting acid blockers when the blockers havent started working yet. Follow the directions on the label. Liquid antacids may work better than tablets. Note that antacids can interfere with absorption of certain medications. Specifically, do not take Tagamet (cimetidine), Zantac (ranitidine), or Carafate (sucralfate) within 1 hour of taking an antacid. Talk with your pharmacist if you have any questions. Symptoms of gastritis can be worsened by certain foods. Limit or avoid fatty, fried, and spicy foods, as well as coffee, chocolate, mint, and foods with high acid content such as tomatoes and citrus fruit and juices (orange, grapefruit, lemon). Avoid alcohol, caffeine, and tobacco, which can delay healing. Avoid aspirin and anti-inflammatory medications such as ibuprofen (Advil, Motrin) and naproxen (Naprosyn, Aleve). Acetaminophen (Tylenol) is safe to use. Do not take more than the amount listed on the label. Follow Up with your doctor, or as advised by our staff. Further testing may be needed. If you do not improve over the next 4 days, contact your doctor. If you had an x-ray, CT scan, or ECG (electrocardiogram), it will be reviewed by a specialist. Youll be notified of any new findings that affect your care. Get Prompt Medical Attention if any of the following occur: Stomach pain gets worse or moves to the lower right abdomen (appendix area) Chest pain appears or gets worse, or spreads to the back, neck, shoulder, or arm Frequent vomiting (cant keep down liquids) Blood in the stool or vomit (red or black in color) Feeling weak or dizzy, fainting, or trouble breathing Fever of 100.4F (38C) or higher, or as directed by your healthcare provider Tramadol Hydrochloride Oral tablet What is this medicine? TRAMADOL (TRA ma dole) is a pain reliever. It is used to treat moderate to severe pain in adults. How should I use this medicine? Take this medicine by mouth with a full glass of water. Follow the directions on the prescription label. If the medicine upsets your stomach, take it with food or milk. Do not take more medicine than you are told to take. Talk to your grinding machine operator portable regarding the use of this medicine in children. Special care may be needed. What side effects may I notice from receiving this medicine? Side effects that you should report to your doctor or health caregivers homecare as soon as possible: allergic reactions like skin rash, itching or hives, swelling of the face, lips, or tongue breathing difficulties, wheezing confusion itching light headedness or fainting spells redness, blistering, peeling or loosening of the skin, including inside the mouth seizures Side effects that usually do not require medical attention (report to your doctor or health caregivers homecare if they continue or are bothersome): constipation dizziness drowsiness headache nausea, vomiting What may interact with this medicine? Do not take this medicine with any of the following medications: MAOIs like Carbex, Eldepryl, Marplan, Nardil, and Parnate This medicine may also interact with the following medications: alcohol or medicines that contain alcohol antihistamines benzodiazepines bupropion carbamazepine or oxcarbazepine clozapine cyclobenzaprine digoxin furazolidone linezolid medicines for depression, anxiety, or psychotic disturbances medicines for migraine headache like almotriptan, eletriptan, frovatriptan, naratriptan, rizatriptan, sumatriptan, zolmitriptan medicines for pain like pentazocine, buprenorphine, butorphanol, meperidine, nalbuphine, and propoxyphene medicines for sleep muscle relaxants naltrexone phenobarbital phenothiazines like perphenazine, thioridazine, chlorpromazine, mesoridazine, fluphenazine, prochlorperazine, promazine, and trifluoperazine procarbazine warfarin What if I miss a dose? If you miss a dose, take it as soon as you can. If it is almost time for your next dose, take only that dose. Do not take double or extra doses. Where should I keep my medicine? Keep out of the reach of children. Store at room temperature between 15 and 30 degrees C (59 and 86 degrees F). Keep container tightly closed. Throw away any unused medicine after the expiration date. What should I tell my health care provider before I take this medicine? They need to know if you have any of these conditions: brain tumor depression drug abuse or addiction head injury if you frequently drink alcohol containing drinks kidney disease or trouble passing urine liver disease lung disease, asthma, or breathing problems seizures or epilepsy suicidal thoughts, plans, or attempt; a previous suicide attempt by you or a family member an unusual or allergic reaction to tramadol, codeine, other medicines, foods, dyes, or preservatives or trying to get breast-feeding What should I watch for while using this medicine? Tell your doctor or health caregivers homecare if your pain does not go away, if it gets worse, or if you have new or a different type of pain. You may develop tolerance to the medicine. Tolerance means that you will need a higher dose of the medicine for pain relief. Tolerance is normal and is expected if you take this medicine for a long time. Do not suddenly stop taking your medicine because you may develop a severe reaction. Your body becomes used to the medicine. This does NOT mean you are addicted. Addiction is a behavior related to getting and using a drug for a non-medical reason. If you have pain, you have a medical reason to take pain medicine. Your doctor will tell you how much medicine to take. If your doctor wants you to stop the medicine, the dose will be slowly lowered over time to avoid any side effects. You may get drowsy or dizzy. Do not drive, use machinery, or do anything that needs mental alertness until you know how this medicine affects you. Do not stand or sit up quickly, especially if you are an older patient. This reduces the risk of dizzy or fainting spells. Alcohol can increase or decrease the effects of this medicine. Avoid alcoholic drinks. You may have constipation. Try to have a bowel movement at least every 2 to 3 days. If you do not have a bowel movement for 3 days, call your doctor or health caregivers homecare. Your mouth may get dry. Chewing sugarless gum or sucking hard candy, and drinking plenty of water may help. Contact your doctor if the problem does not go away or is severe. Ranitidine Hydrochloride Oral tablet What is this medicine? RANITIDINE (ra IMANI simental) is a type of antihistamine that blocks the release of stomach acid. It is used to treat stomach or intestinal ulcers. It can relieve ulcer pain and discomfort, and the heartburn from acid reflux. How should I use this medicine? Take this medicine by mouth with a glass of water. Follow the directions on the prescription label. If you only take this medicine once a day, take it at bedtime. Take your medicine at regular intervals. Do not take your medicine more often than directed. Do not stop taking except on your doctor's advice. Talk to your grinding machine operator portable regarding the use of this medicine in children. Special care may be needed. What side effects may I notice from receiving this medicine? Side effects that you should report to your doctor or health caregivers homecare as soon as possible: agitation, nervousness, depression, hallucinations allergic reactions like skin rash, itching or hives, swelling of the face, lips, or tongue breast enlargement in both males and females breathing problems redness, blistering, peeling or loosening of the skin, including inside the mouth unusual bleeding or bruising unusually weak or tired vomiting yellowing of the skin or eyes Side effects that usually do not require medical attention (report to your doctor or health caregivers homecare if they continue or are bothersome): constipation or diarrhea dizziness headache nausea What may interact with this medicine? atazanavir delavirdine gefitinib glipizide ketoconazole midazolam procainamide propantheline triazolam warfarin What if I miss a dose? If you miss a dose, take it as soon as you can. If it is almost time for your next dose, take only that dose. Do not take double or extra doses. Where should I keep my medicine? Keep out of the reach of children. Store at room temperature between 15 and 30 degrees C (59 and 86 degrees F). Protect from light and moisture. Keep container tightly closed. Throw away any unused medicine after the expiration date. What should I tell my health care provider before I take this medicine? They need to know if you have any of these conditions: kidney disease liver disease porphyria an unusual or allergic reaction to ranitidine, other medicines, foods, dyes, or preservatives or trying to get breast-feeding What should I watch for while using this medicine? Tell your doctor or health caregivers homecare if your condition does not start to get better or gets worse. You may need to take this medicine for several days as prescribed before your symptoms get better. Finish the full course of tablets prescribed, even if you feel better. Do not smoke cigarettes or drink alcohol. These increase irritation in your stomach and can lengthen the time it will take for ulcers to heal. Cigarettes and alcohol can also make acid reflux or heartburn worse. If you get black, tarry stools or vomit up what looks like coffee grounds, call your doctor or health caregivers homecare at once. You may have a bleeding ulcer. You have been given the following additional information: Gastritis (Adult) Tramadol Hydrochloride Oral tablet Ranitidine Hydrochloride Oral tablet (Electronically signed by Yony Nix Dr. 06/05/2016 20:41)
--- NOTE | 2016-06-05 20:41 | ED MED RECONCILIATION SUMMARY ---
Patient: TAMERA AN Medication Reconciliation Report [facility] VisitID: [id number] [place] [address] 31y, M Registration Date/Time: 06/04/2016 Weight: 72.5 kg Height/Length: 67 in. BMI: 25.1 ALLERGIES: None The patient's Home Medications are listed below: STOP TAKING THE FOLLOWING MEDICATIONS: Meloxicam Oral The source(s) of the original Home Medication information: patient The following Medications were given to the patient in the Emergency Department: None. The following Medications were prescribed to the patient: Tramadol 50 mg: take 1 orally every 6 hours as needed for pain and stiffness. Do not take more than 8 tablets in a 24 hour period. Dispense twenty (20). No refills. -- Yony Nix Dr. Zantac 150 mg: take 1 orally every 12 hours. Dispense sixty (60). No refills. Substitution is permissible. -- Yony Nix Dr.
== END 2016-06-04 13:18 | disposition home or self-care (01) ==
LOC: ED SRH 10:53
DX: K29.00 Acute gastritis without bleeding (principal)
CPT/HCPCS: 90074; 90100; 90616; 91320; 91556; 92610; 92720; 95059